=== PATIENT | female | born 1930 | race Caucasian/White ===

== ENCOUNTER → 2017-06-03 | Outpatient (CLI) | payer MEDICARE ==
--- NOTE | 2017-06-07 08:51 | MM ---
Reason for exam: screening (asymptomatic). Last mammogram was performed 1 year ago. History: Patient is postmenopausal. Family history of premenopausal breast cancer in sister at age 40. Physical Findings: A clinical breast exam by your physician is recommended on an annual basis and results should be correlated with mammographic findings. MG 3D Screening Mammo W/Cad Bilateral CC and MLO view(s) were taken. Prior study comparison: June 02, 2016, bilateral MG 3d screening mammo w/cad. May 27, 2015, bilateral MG screening mammo w CAD. May 20, 2014, bilateral MG screening mammo w CAD. There are scattered fibroglandular densities. No significant changes when compared with prior studies. ASSESSMENT: Negative, BI-RAD 1 RECOMMENDATION: Routine screening mammogram of both breasts in 1 year.
== END | disposition home or self-care (01) ==
LOC: RADMAMWWP 14:10
PROVIDERS: ATTEND Internal Medicine
DX: Z12.31 Encounter for screening mammogram for malignant neoplasm of breast (principal)
CPT/HCPCS: 77063; G0202

== ENCOUNTER → 2018-03-16 | Outpatient (CLI) | payer MEDICARE ==
--- NOTE | 2018-03-16 14:38 | US ---
EXAMINATION TYPE: US carotid duplex BILAT DATE OF EXAM: 03/16/2018 COMPARISON: NONE CLINICAL HISTORY: R09.89 CAROTID BRUIT. HTN, bruit, no hx of TIA's or stroke EXAM MEASUREMENTS: RIGHT: Peak Systolic Velocity (PSV) cm/sec ----- Right CCA: 69.3 ----- Right ICA: 100.9 ----- Right ECA: 76.3 ICA/CCA ratio: 1.5 RIGHT: End Diastole cm/sec ----- Right CCA: 14.2 ----- Right ICA: 29.7 ----- Right ECA: 0.0 LEFT: Peak Systolic Velocity (PSV) cm/sec ----- Left CCA: 62.7 ----- Left ICA: 83.6 ----- Left ECA: 112.6 ICA/CCA ratio: 1.3 LEFT: End Diastole cm/sec ----- Left CCA: 10.9 ----- Left ICA: 18.6 ----- Left ECA: 0.0 VERTEBRALS (direction of flow): Right Vertebral: Antegrade Left Vertebral: Antegrade Rhythm: Normal Grayscale images show diffuse plaque throughout visualized portion of distal common carotid arteries including carotid bulb level bilaterally. Velocity measurements and ratios in both internal carotid a rteries remains within normal limits. IMPRESSION: Diffuse atherosclerotic change without hemodynamically significant stenosis seen in eithe r internal carotid artery.
== END | disposition home or self-care (01) ==
LOC: RADUSWWP 13:37
PROVIDERS: ATTEND Internal Medicine
DX: I70.8 Atherosclerosis of other arteries (principal)
CPT/HCPCS: 93880

== ENCOUNTER → 2018-06-21 | Outpatient (CLI) | payer MEDICARE ==
--- NOTE | 2018-06-22 13:42 | MM ---
Reason for exam: screening (asymptomatic). Last mammogram was performed 1 year and 1 month ago. History: Patient is postmenopausal. Family history of premenopausal breast cancer in sister at age 40. Physical Findings: A clinical breast exam by your physician is recommended on an annual basis and results should be correlated with mammographic findings. MG 3D Screening Mammo W/Cad Bilateral CC and MLO view(s) were taken. Prior study comparison: June 03, 2017, bilateral MG 3d screening mammo w/cad. June 02, 2016, bilateral MG 3d screening mammo w/cad. The breast tissue is heterogeneously dense. This may lower the sensitivity of mammography. Finding: There are typically benign vascular, round calcifications in both breasts. Asymmetric breast tissue in the left upper aspect anteriorly, stable. There is no discrete abnormality. ASSESSMENT: Benign, BI-RAD 2 RECOMMENDATION: Routine screening mammogram of both breasts in 1 year.
== END | disposition home or self-care (01) ==
LOC: RADMAMWWP 09:49
PROVIDERS: ATTEND Internal Medicine
DX: Z12.31 Encounter for screening mammogram for malignant neoplasm of breast (principal)
CPT/HCPCS: 77063; 77067

== ENCOUNTER → 2019-07-02 | Outpatient (CLI) | payer MEDICARE ==
--- NOTE | 2019-07-04 10:17 | MM ---
Reason for exam: screening (asymptomatic). Last mammogram was performed 1 year ago. History: Patient is postmenopausal. Family history of premenopausal breast cancer in sister at age 40. Physical Findings: A clinical breast exam by your physician is recommended on an annual basis and results should be correlated with mammographic findings. MG 3D Screening Mammo W/Cad Bilateral CC and MLO view(s) were taken. Prior study comparison: June 21, 2018, bilateral MG 3d screening mammo w/cad. June 03, 2017, bilateral MG 3d screening mammo w/cad. There are scattered fibroglandular densities. No significant changes when compared with prior studies. ASSESSMENT: Benign, BI-RAD 2 RECOMMENDATION: Routine screening mammogram of both breasts in 1 year.
== END | disposition home or self-care (01) ==
LOC: RADMAMWWP 14:31
PROVIDERS: ATTEND Internal Medicine
DX: Z12.31 Encounter for screening mammogram for malignant neoplasm of breast (principal)
CPT/HCPCS: 77063; 77067

== ENCOUNTER → 2021-01-09 | Outpatient (CLI) | payer MEDICARE ==
--- NOTE | 2021-01-13 10:37 | MM ---
Reason for exam: screening (asymptomatic). Last mammogram was performed 1 year and 6 months ago. History: Patient is postmenopausal and has history of other cancer at age 61. Family history of premenopausal breast cancer in sister at age 40. Physical Findings: A clinical breast exam by your physician is recommended on an annual basis and results should be correlated with mammographic findings. MG 3D Screening Mammo W/Cad Bilateral CC and MLO view(s) were taken. Prior study comparison: July 02, 2019, bilateral MG 3d screening mammo w/cad. June 21, 2018, bilateral MG 3d screening mammo w/cad. The breast tissue is heterogeneously dense. This may lower the sensitivity of mammography. There is chronic nodularity in the right breast posterior upper outer quadrant. Benign vascular calcifications. No significant changes when compared with prior studies. ASSESSMENT: Negative, BI-RAD 1 RECOMMENDATION: Routine screening mammogram of both breasts in 1 year.
== END | disposition home or self-care (01) ==
LOC: RADMAMWWP 13:19
PROVIDERS: ATTEND Internal Medicine
DX: Z12.31 Encounter for screening mammogram for malignant neoplasm of breast (principal); Z80.3 Family history of malignant neoplasm of breast; Z78.0 Asymptomatic menopausal state
CPT/HCPCS: 77063; 77067